=== PATIENT | female | born 1970 | race Caucasian/White ===

== ENCOUNTER 2017-07-30 18:37 | Inpatient (IN) | payer OTHER ==
[~2017-07-30] VITALS: Ht 165.1 cm; Wt 106.6 kg
[~2017-07-30 18:37] MED LIST: BENADRYL 25MG C25 MG PO; CATAPRES0.3 MG PO; CELEXA40 MG PO; FERROUS SULFAT325 MG PO; IBUPROFEN800 MG PO; LANTUS SQ; LEVAQUIN750 MG PO; LOPRESSOR100 MG PO; LYRICA100 MG PO; NORCO 5-325 TA1 EACH PO; REQUIP2 MG PO; ROBAXIN 750 MG750 MG PO
[2017-07-30 19:49] LABS: HEMOGLOBIN 11.3 gm/dl (12.3-15.3); RED BLOOD COUNT 5.43 M/UL (4.00-5.10)
[2017-07-30 19:55] LABS: BUN/CREATININE RATIO 16 (0-10)
[2017-07-31] MEDS ORDERED: LANTUS100 UNIT/1 SQ (04:04)
[2017-07-31] MEDS ORDERED: FARXIGA5 MG PO (04:07)
[2017-07-31 04:22] LABS: WHITE BLOOD COUNT 10.7 K/UL (4.5-11.0)
[2017-07-31] MEDS ORDERED: CATAPRES0.3 MG PO (04:23)
[2017-07-31 04:27] LABS: HEMOGLOBIN 9.2 gm/dl (12.3-15.3); RED BLOOD COUNT 4.37 M/UL (4.00-5.10)
[2017-07-31 04:28] LABS: BUN/CREATININE RATIO 15 (0-10)
[2017-07-31] MEDS ORDERED: BASAGLAR SQ (04:42)
[2017-08-01 04:16] LABS: HEMOGLOBIN 9.3 gm/dl (12.3-15.3); RED BLOOD COUNT 4.39 M/UL (4.00-5.10); WHITE BLOOD COUNT 8.3 K/UL (4.5-11.0)
[2017-08-01 04:19] LABS: BUN/CREATININE RATIO 10 (0-10)
[2017-08-01] MEDS ORDERED: NOVOLOG100 UNIT/1 SQ (16:35)
[2017-08-01] MEDS ORDERED: TYLENOL 325MG325 MG PO (16:36)
[2017-08-01] MEDS ORDERED: CEFTIN250 MG/5 M PO (16:42)
== END 2017-08-01 17:44 | disposition home or self-care (01) | DRG 699 ==
LOC: ER1 18:37 → ZEROF 22:57 → MED SURG 4 22:57
PROVIDERS: Physician Assistant; Physician Assistant Medical; ADMIT Internal Medicine
DX: E11.29 Type 2 diabetes mellitus with other diabetic kidney complication (principal); N12 Tubulo-interstitial nephritis, not specified as acute or chronic; D72.829 Elevated white blood cell count, unspecified; E11.65 Type 2 diabetes mellitus with hyperglycemia; B37.3 Candidiasis of vulva and vagina; M54.5 Low back pain; G89.29 Other chronic pain; M79.7 Fibromyalgia; I10 Essential (primary) hypertension; G25.81 Restless legs syndrome; Z86.19 Personal history of other infectious and parasitic diseases
CPT/HCPCS: 36415; 71010; 74000; 80048; 80053; 81001; 82962; 83605; 83690; 83735; 84100; 84132; 84703; 85025; 85027; 87040; 87086; J0696; J1650; J1817; J2270; J2405; J2543; J7030; J7050; Q0163; Q9962

== ENCOUNTER 2021-01-28 18:37 | Inpatient (IN) | payer OTHER ==
[~2021-01-28] VITALS: Ht 165.1 cm; Wt 101.6 kg
[~2021-01-28 18:37] MED LIST changes: +ADMELOG100 UNIT/1 SC; +BASAGLAR K100 UNIT/1 SC; +BASAGLAR SQ; +CEFTIN250 MG/5 M PO; +CELEBREX200 MG PO; +FARXIGA5 MG PO; +HUMULIN N100 UNIT/1 SQ; +HYDROCHLOROTHIA25 MG PO; +HYDROCODON-ACE1 EAC2 PO; +LANTUS100 UNIT/1 SQ; +LISINOPRIL5 MG PO; +MACROBID 100 M100 MG PO; +NEURONTIN600 MG PO; +NOVOLOG100 UNIT/1 SQ; +ROBAXIN-750750 MG PO; +TYLENOL 325MG325 MG PO; +VISTARIL 50 MG50 MG PO; +ZOFRAN4 MG PO
[2021-01-28 22:58] LABS: HEMOGLOBIN 10.7 gm/dl (12.3-15.3); RED BLOOD COUNT 5.04 M/UL (4.00-5.10); WHITE BLOOD COUNT 11.2 K/UL (4.5-11.0)
[2021-01-28 23:17] LABS: BUN/CREATININE RATIO 19 (0-10)
[2021-01-29] MEDS ORDERED: WELLBUTRIN XL300 MG PO (00:22)
[2021-01-29] MEDS ORDERED: CRESTOR20 MG PO (00:23)
[2021-01-29] MEDS ORDERED: HYDROCHLOROTHIA25 MG PO (00:23)
[2021-01-29] MEDS ORDERED: CLONIDINE HCL0.3 MG PO (00:24)
[2021-01-29] MEDS ORDERED: UNISOM SLEEP AI25 MG PO (00:27)
[2021-01-29 08:15] LABS: WHITE BLOOD COUNT 10.6 K/UL (4.5-11.0)
[2021-01-29 08:23] LABS: RED BLOOD COUNT 4.71 M/UL (4.00-5.10)
[2021-01-29 08:50] LABS: BUN/CREATININE RATIO 18 (0-10)
[2021-01-30 05:13] LABS: HEMOGLOBIN 9.1 gm/dl (12.3-15.3); RED BLOOD COUNT 4.39 M/UL (4.00-5.10); WHITE BLOOD COUNT 8.8 K/UL (4.5-11.0)
[2021-01-30 05:38] LABS: BUN/CREATININE RATIO 13 (0-10)
[2021-01-31 04:29] LABS: BUN/CREATININE RATIO 12 (0-10)
[2021-02-01 03:17] LABS: HEMOGLOBIN 9.4 gm/dl (12.3-15.3); RED BLOOD COUNT 4.47 M/UL (4.00-5.10)
[2021-02-01 03:28] LABS: BUN/CREATININE RATIO 9 (0-10)
[2021-02-01] MEDS ORDERED: LISINOPRIL10 MG PO (17:44)
[2021-02-01] MEDS ORDERED: JARDIANCE10 MG PO (17:44)
[2021-02-01] MEDS ORDERED: INVANZ 1 GM VIAL1 GM IV (17:44)
[2021-02-01] MEDS ORDERED: BASAGLAR K100 UNIT/1 SC (17:44)
[2021-02-01] MEDS ORDERED: VITAMIN D350 MC3 PO (18:01)
== END 2021-02-01 18:49 | disposition home or self-care (01) | DRG 264 ==
LOC: ER1 18:37 → CDU 23:54 → M/S 01-29 17:50
PROVIDERS: Internal Medicine Infectious Disease; Physician Assistant; Podiatrist Foot & Ankle Surgery; ADMIT Internal Medicine
PROC: 0JBQ0ZZ Excision of Right Foot Subcutaneous Tissue and Fascia, Open Approach (ICD-10-PCS; 2021-01-29)
PROC: 0QBN0ZZ Excision of Right Metatarsal, Open Approach (ICD-10-PCS; principal; 2021-01-29 19:26)
DX: E11.52 Type 2 diabetes mellitus with diabetic peripheral angiopathy with gangrene (principal); M86.171 Other acute osteomyelitis, right ankle and foot; E87.2 Acidosis; E11.69 Type 2 diabetes mellitus with other specified complication; E11.621 Type 2 diabetes mellitus with foot ulcer; I10 Essential (primary) hypertension; D50.9 Iron deficiency anemia, unspecified; E55.9 Vitamin D deficiency, unspecified; E11.40 Type 2 diabetes mellitus with diabetic neuropathy, unspecified; F41.8 Other specified anxiety disorders; Z20.822 Contact with and (suspected) exposure to COVID-19; M50.30 Other cervical disc degeneration, unspecified cervical region; F11.90 Opioid use, unspecified, uncomplicated; M79.7 Fibromyalgia; G25.81 Restless legs syndrome; G89.29 Other chronic pain; E66.9 Obesity, unspecified; Z90.49 Acquired absence of other specified parts of digestive tract; Z68.30 Body mass index [BMI] 30.0-30.9, adult; Z79.4 Long term (current) use of insulin
CPT/HCPCS: 36415; 73630; 73718; 80048; 80053; 80202; 82550; 82553; 82607; 82746; 82962; 83036; 83540; 83550; 83605; 83735; 83874; 84100; 84443; 84484; 85025; 85027; 85652; 86140; 87040; 87070; 87077; 87186; 87205; 93926; 96365; 96366; 96367; 96372; 96375; 96376; 99284; C1751; G0378; J1100; J1335; J1650; J1756; J2001; J2250; J2405; J2543; J2704; J2765; J2795; J3010; J3370; J7030; J7070; J7120; U0002

== ENCOUNTER 2021-02-14 17:07 | Emergency (ER) | payer OTHER ==
[~2021-02-14 17:07] MED LIST changes: +CLONIDINE HCL0.3 MG PO; +CRESTOR20 MG PO; +INVANZ 1 GM VIAL1 GM IV; +JARDIANCE10 MG PO; +LISINOPRIL10 MG PO; +UNISOM SLEEP AI25 MG PO; +VITAMIN D350 MC3 PO; +WELLBUTRIN XL300 MG PO
== END 2021-02-14 20:11 | disposition home or self-care (01) ==
LOC: ER1 17:07
DX: T82.594A Other mechanical complication of infusion catheter, initial encounter (principal); I10 Essential (primary) hypertension; E11.9 Type 2 diabetes mellitus without complications; Z88.8 Allergy status to other drugs, medicaments and biological substances; Y83.8 Other surgical procedures as the cause of abnormal reaction of the patient, or of later complication, without mention of misadventure at the time of the procedure
CPT/HCPCS: 71045; 73060; 99283

== ENCOUNTER → 2021-02-22 | Outpatient (CLI) | payer OTHER ==
[~2021-02-22] VITALS: Ht 165.1 cm; Wt 102.1 kg
[~2021-02-22] MED LIST changes: +CELEXA20 MG PO; +HUMALOG100 UNIT/3 SQ; +HYDROXYZINE HCL50 MG PO; +METOPROLOL TAR100 MG PO; +SEROQUEL200 MG PO; +VOLTAREN100 GM TP; +WELLBUTRIN SR200 MG PO; +ZESTRIL10 MG PO; +ZESTRIL30 MG PO; +ZOSYN 4.5 GM A4.5 GM IV
[2021-02-22 09:12] LABS: HEMOGLOBIN 11.2 gm/dl (12.3-15.3); RED BLOOD COUNT 5.13 M/UL (4.00-5.10)
[2021-02-22 09:32] LABS: BUN/CREATININE RATIO 16 (0-10)
== END ==
LOC: OPSV 02-18 08:00
PROVIDERS: Podiatrist Foot & Ankle Surgery
DX: M86.9 Osteomyelitis, unspecified (principal); B95.5 Unspecified streptococcus as the cause of diseases classified elsewhere
CPT/HCPCS: 80048; 85027; 85652; 86140; 96365; 96366; C1751; J3370; J7070

== ENCOUNTER 2021-03-11 21:49 | Inpatient (IN) | payer OTHER ==
[~2021-03-11] VITALS: Ht 165.1 cm; Wt 102.1 kg
[~2021-03-11 21:49] MED LIST changes: -CELEXA20 MG PO; -HUMALOG100 UNIT/3 SQ; -HYDROXYZINE HCL50 MG PO; -METOPROLOL TAR100 MG PO; -SEROQUEL200 MG PO; -VOLTAREN100 GM TP; -WELLBUTRIN SR200 MG PO; -ZESTRIL10 MG PO; -ZESTRIL30 MG PO; -ZOSYN 4.5 GM A4.5 GM IV
[2021-03-11 22:37] LABS: HEMOGLOBIN 11.7 gm/dl (12.3-15.3); RED BLOOD COUNT 5.41 M/UL (4.00-5.10); WHITE BLOOD COUNT 10.7 K/UL (4.5-11.0)
[2021-03-11 22:56] LABS: BUN/CREATININE RATIO 15 (0-10)
[2021-03-12] MEDS ORDERED: HUMALOG100 UNIT/3 SQ (00:19)
[2021-03-12] MEDS ORDERED: SEROQUEL200 MG PO (00:21)
[2021-03-12] MEDS ORDERED: CELEXA20 MG PO (07:42)
[2021-03-12] MEDS ORDERED: ZESTRIL10 MG PO (09:24)
[2021-03-12] MEDS ORDERED: WELLBUTRIN SR200 MG PO (09:26)
[2021-03-12] MEDS ORDERED: CELEBREX200 MG PO (09:29)
[2021-03-12] MEDS ORDERED: HYDROCHLOROTHIA25 MG PO (09:30)
[2021-03-12] MEDS ORDERED: VOLTAREN100 GM TP (09:32)
[2021-03-12] MEDS ORDERED: HYDROXYZINE HCL50 MG PO (09:33)
[2021-03-12] MEDS ORDERED: UNISOM SLEEP AI25 MG PO (09:36)
[2021-03-13 04:04] LABS: HEMOGLOBIN 10.6 gm/dl (12.3-15.3); RED BLOOD COUNT 4.9 M/UL (4.00-5.10); WHITE BLOOD COUNT 9.9 K/UL (4.5-11.0)
[2021-03-13 04:33] LABS: BUN/CREATININE RATIO 14 (0-10)
[2021-03-15 02:51] LABS: HEMOGLOBIN 9.5 gm/dl (12.3-15.3); RED BLOOD COUNT 4.52 M/UL (4.00-5.10); WHITE BLOOD COUNT 9.3 K/UL (4.5-11.0)
[2021-03-15 03:12] LABS: BUN/CREATININE RATIO 13 (0-10)
[2021-03-15] MEDS ORDERED: ZESTRIL30 MG PO (14:48)
[2021-03-15] MEDS ORDERED: ZOSYN 4.5 GM A4.5 GM IV (14:48)
--- NOTE | 2021-03-15 17:00 | NUR ---
INSTRUCTED ON FOLLOW UP APPOINTMENTS, TAKE ALL MEDS ORDERED. KEEP WOUND CLEAN AND DRY. SIGNS AND SYMPTOMS OF INFECTION, VERBALIZED UNDERSTANDING Kiersten HARMON,
== END 2021-03-15 18:00 | disposition home or self-care (01) | DRG 638 ==
LOC: ER1 21:49 → CDU 23:44 → MED SURG 4 23:44
PROVIDERS: Family Medicine; Internal Medicine Infectious Disease; ADMIT Family Medicine
PROC: 02HV33Z Insertion of Infusion Device into Superior Vena Cava, Percutaneous Approach (ICD-10-PCS; principal; 2021-03-15)
DX: E11.69 Type 2 diabetes mellitus with other specified complication (principal); M86.8X7 Other osteomyelitis, ankle and foot; L03.115 Cellulitis of right lower limb; L03.031 Cellulitis of right toe; E87.6 Hypokalemia; I10 Essential (primary) hypertension; R00.1 Bradycardia, unspecified; G25.81 Restless legs syndrome; G89.29 Other chronic pain; E11.621 Type 2 diabetes mellitus with foot ulcer; D53.9 Nutritional anemia, unspecified; M54.9 Dorsalgia, unspecified; M79.7 Fibromyalgia; E55.9 Vitamin D deficiency, unspecified; Z83.3 Family history of diabetes mellitus; Z82.49 Family history of ischemic heart disease and other diseases of the circulatory system; Z80.9 Family history of malignant neoplasm, unspecified; Z79.4 Long term (current) use of insulin; Z90.49 Acquired absence of other specified parts of digestive tract; Z98.49 Cataract extraction status, unspecified eye; Z88.6 Allergy status to analgesic agent
CPT/HCPCS: 36415; 73630; 80053; 82962; 83605; 85025; 86140; 87070; 87077; 87186; 87205; 96374; 96375; 96376; 99284; G0378; J2543; J3370; J7060; J7070; U0002

== ENCOUNTER 2021-03-25 20:45 | Inpatient (IN) | payer OTHER ==
[~2021-03-25] VITALS: Ht 165.1 cm; Wt 108.9 kg
[~2021-03-25 20:45] MED LIST changes: +CELEXA20 MG PO; +HUMALOG100 UNIT/3 SQ; +HYDROXYZINE HCL50 MG PO; +SEROQUEL200 MG PO; +VOLTAREN100 GM TP; +WELLBUTRIN SR200 MG PO; +ZESTRIL10 MG PO; +ZESTRIL30 MG PO; +ZOSYN 4.5 GM A4.5 GM IV
[2021-03-25 23:47] LABS: HEMOGLOBIN 11.3 gm/dl (12.3-15.3); RED BLOOD COUNT 5.09 M/UL (4.00-5.10); WHITE BLOOD COUNT 10.9 K/UL (4.5-11.0)
[2021-03-26 00:07] LABS: BUN/CREATININE RATIO 27 (0-10)
[2021-03-26] MEDS ORDERED: BASAGLAR K100 UNIT/1 SC (01:50)
[2021-03-26] MEDS ORDERED: METOPROLOL TAR100 MG PO (16:09)
[2021-03-27 05:01] LABS: HEMOGLOBIN 10.1 gm/dl (12.3-15.3); RED BLOOD COUNT 4.64 M/UL (4.00-5.10); WHITE BLOOD COUNT 9.1 K/UL (4.5-11.0)
[2021-03-27 05:20] LABS: BUN/CREATININE RATIO 22 (0-10)
[2021-03-28 04:59] LABS: HEMOGLOBIN 11.1 gm/dl (12.3-15.3); RED BLOOD COUNT 5.01 M/UL (4.00-5.10); WHITE BLOOD COUNT 10.5 K/UL (4.5-11.0)
[2021-03-28 05:23] LABS: BUN/CREATININE RATIO 23 (0-10)
--- NOTE | 2021-03-28 14:12 | NUR ---
9138- CALLED TO PATIENTS ROOM, PATIENT STATED SHE FELT HER BLOOD SUGAR HAD DROPPED. BLOOD GLUCOSE 47. PATIENT WANTED SNACK AND APPLE JUICE. AWAKE AND ALERT.
--- NOTE | 2021-03-28 14:13 | NUR ---
1406- BLOOD GLUCOSE 85.
[2021-03-29 04:30] LABS: HEMOGLOBIN 10.5 gm/dl (12.3-15.3); RED BLOOD COUNT 4.79 M/UL (4.00-5.10); WHITE BLOOD COUNT 9.1 K/UL (4.5-11.0)
[2021-03-29 04:47] LABS: BUN/CREATININE RATIO 19 (0-10)
[2021-03-30 04:29] LABS: HEMOGLOBIN 10.9 gm/dl (12.3-15.3); RED BLOOD COUNT 4.99 M/UL (4.00-5.10); WHITE BLOOD COUNT 9.7 K/UL (4.5-11.0)
== END 2021-03-30 10:33 | disposition home health service (06) | DRG 988 ==
LOC: ER1 20:45 → CDU 03-26 01:47 → M/S 03-26 01:47
PROVIDERS: Internal Medicine; Orthopaedic Surgery; Physician Assistant; ADMIT Internal Medicine
PROC: 0J9Q0ZZ Drainage of Right Foot Subcutaneous Tissue and Fascia, Open Approach (ICD-10-PCS; principal; 2021-03-29 09:15)
DX: E11.628 Type 2 diabetes mellitus with other skin complications (principal); L03.115 Cellulitis of right lower limb; L02.611 Cutaneous abscess of right foot; M86.8X7 Other osteomyelitis, ankle and foot; E11.621 Type 2 diabetes mellitus with foot ulcer; E11.69 Type 2 diabetes mellitus with other specified complication; M79.7 Fibromyalgia; G89.29 Other chronic pain; M54.9 Dorsalgia, unspecified; D53.9 Nutritional anemia, unspecified; I10 Essential (primary) hypertension; E55.9 Vitamin D deficiency, unspecified; F41.9 Anxiety disorder, unspecified; F32.9 Major depressive disorder, single episode, unspecified; Z79.4 Long term (current) use of insulin; Z88.6 Allergy status to analgesic agent
CPT/HCPCS: 36415; 73700; 73720; 80048; 80053; 80202; 82962; 83605; 85025; 85027; 85652; 86140; 87040; 93005; 96365; 96366; 99285; A9577; J0360; J1650; J2250; J2405; J2543; J2704; J3010; J3370; J7030; J7050; J7070; J7120; Q0177; U0002

== ENCOUNTER 2021-04-09 16:22 | Emergency (ER) | payer OTHER ==
[~2021-04-09 16:22] MED LIST changes: +METOPROLOL TAR100 MG PO
== END 2021-04-09 18:52 | disposition home or self-care (01) ==
LOC: ER1 16:22
DX: T82.898A Other specified complication of vascular prosthetic devices, implants and grafts, initial encounter (principal); Z79.899 Other long term (current) drug therapy; Z88.8 Allergy status to other drugs, medicaments and biological substances
CPT/HCPCS: 71045; 99283

== ENCOUNTER → 2021-05-04 | Outpatient (CLI) | payer OTHER ==
[2021-05-04 14:15] LABS: HEMOGLOBIN 11.4 gm/dl (12.3-15.3); RED BLOOD COUNT 4.91 M/UL (4.00-5.10); WHITE BLOOD COUNT 7.6 K/UL (4.5-11.0)
== END ==
LOC: VNA 13:35
PROVIDERS: Podiatrist Foot & Ankle Surgery
DX: L02.611 Cutaneous abscess of right foot (principal)
CPT/HCPCS: 85025; 85652; 86140

== ENCOUNTER → 2021-06-14 | Outpatient (CLI) | payer OTHER ==
[~2021-06-14] MED LIST changes: +DICLOFENAC GEL 1% TOP; +EFFEXOR XR75 MG PO; +HEPARIN FLUSH IV; +LISINOPRIL40 MG PO; +LOPRESSOR50 MG PO; +SULFAMETHOXAZO1 EACH PO; +TRULICITY1.5 MG/0.5 SC; +ZOSYN IV
[2021-06-14 13:31] LABS: HEMOGLOBIN 12.4 gm/dl (12.3-15.3); RED BLOOD COUNT 5.15 M/UL (4.00-5.10); WHITE BLOOD COUNT 8.2 K/UL (4.5-11.0)
[2021-06-15 07:10] LABS: HBSAG SCREEN Negative (Negative); HCV AB <0.1 (0.0-0.9)
[2021-06-15 07:11] LABS: HEP B CORE AB, TOT Negative (Negative)
[2021-06-17 20:09] LABS: QUANTIFERON MITOGEN VALUE >10.00 IU/mL (.); QUANTIFERON NIL VALUE 0.03 IU/mL (.); QUANTIFERON TB1 AG VALUE 0.02 IU/mL (.); QUANTIFERON TB2 AG VALUE 0.03 IU/mL (.); QUANTIFERON-TB GOLD PLUS Negative (Negative)
== END ==
LOC: LAB 12:09
PROVIDERS: Internal Medicine
DX: L40.50 Arthropathic psoriasis, unspecified (principal); Z51.81 Encounter for therapeutic drug level monitoring; Z79.899 Other long term (current) drug therapy
CPT/HCPCS: 36415; 73130; 73630; 80053; 85025; 85652; 86140; 86704; 86803; 87340

== ENCOUNTER → 2021-08-04 | Outpatient (CLI) | payer OTHER | LOC: EMI 09:15 | DX: M86.9 Osteomyelitis, unspecified (principal) | CPT/HCPCS: 73718 ==

== ENCOUNTER → 2021-08-05 | Outpatient (CLI) | payer OTHER ==
[2021-08-05 11:32] LABS: HEMOGLOBIN 11.4 gm/dl (12.3-15.3); RED BLOOD COUNT 4.71 M/UL (4.00-5.10); WHITE BLOOD COUNT 7.7 K/UL (4.5-11.0)
[2021-08-05 12:01] LABS: BUN/CREATININE RATIO 23 (0-10)
== END ==
LOC: OPSV2 09:52
PROVIDERS: Podiatrist Foot & Ankle Surgery
DX: Z01.818 Encounter for other preprocedural examination (principal); E11.621 Type 2 diabetes mellitus with foot ulcer; L97.519 Non-pressure chronic ulcer of other part of right foot with unspecified severity
CPT/HCPCS: 80048; 83036; 85027; 93005

== ENCOUNTER → 2021-08-11 | Day surgery (SDC) | payer OTHER | END | disposition home or self-care (01) | LOC: OR 05:38 | DX: E11.69 Type 2 diabetes mellitus with other specified complication (principal); M86.9 Osteomyelitis, unspecified; E11.621 Type 2 diabetes mellitus with foot ulcer; L02.611 Cutaneous abscess of right foot; L03.115 Cellulitis of right lower limb; E11.65 Type 2 diabetes mellitus with hyperglycemia; E11.40 Type 2 diabetes mellitus with diabetic neuropathy, unspecified; I10 Essential (primary) hypertension; E78.2 Mixed hyperlipidemia; F34.1 Dysthymic disorder; F17.290 Nicotine dependence, other tobacco product, uncomplicated; Z79.4 Long term (current) use of insulin; Z79.82 Long term (current) use of aspirin; Z79.899 Other long term (current) drug therapy; Z88.8 Allergy status to other drugs, medicaments and biological substances; Z91.14 Patient's other noncompliance with medication regimen; Z20.822 Contact with and (suspected) exposure to COVID-19 | CPT/HCPCS: 73630; 84703; 87070; 87077; 87186; J0690; J1100; J1642; J2001; J2250; J2405; J2543; J2704; J2795; J3370; J7030; J7050; J7120; Q4133; U0002 ==

== ENCOUNTER → 2021-08-19 | Outpatient (CLI) | payer OTHER ==
[~2021-08-19] VITALS: Ht 165.1 cm; Wt 103.4 kg
== END ==
LOC: OPSV 12:00
DX: E11.621 Type 2 diabetes mellitus with foot ulcer (principal); L97.509 Non-pressure chronic ulcer of other part of unspecified foot with unspecified severity; E11.69 Type 2 diabetes mellitus with other specified complication; M86.9 Osteomyelitis, unspecified
CPT/HCPCS: 96365; J2185

== ENCOUNTER 2021-08-27 16:50 | Emergency (ER) | payer OTHER | END 2021-08-27 21:20 | disposition home or self-care (01) | LOC: ER1 16:50 | DX: Z45.2 Encounter for adjustment and management of vascular access device (principal) | CPT/HCPCS: 99283 ==

== ENCOUNTER → 2021-08-28 | Outpatient (CLI) | payer OTHER | LOC: EROP 13:57 → OPSV 13:57 | DX: Z47.81 Encounter for orthopedic aftercare following surgical amputation (principal) | CPT/HCPCS: 96365; J2185 ==

== ENCOUNTER → 2021-08-28 | Outpatient (CLI) | payer OTHER | LOC: EROP 20:03 | DX: Z89.9 Acquired absence of limb, unspecified (principal); Z09 Encounter for follow-up examination after completed treatment for conditions other than malignant neoplasm | CPT/HCPCS: J2185 ==

== ENCOUNTER → 2021-08-28 | Outpatient (CLI) | payer OTHER | LOC: EROP 06:59 | DX: Z47.81 Encounter for orthopedic aftercare following surgical amputation (principal) | CPT/HCPCS: 96365; J2185 ==

== ENCOUNTER → 2021-08-29 | Outpatient (CLI) | payer OTHER | LOC: OPSV 15:22 | DX: Z89.9 Acquired absence of limb, unspecified (principal); Z09 Encounter for follow-up examination after completed treatment for conditions other than malignant neoplasm | CPT/HCPCS: 96365; J2185 ==

== ENCOUNTER → 2021-08-29 | Outpatient (CLI) | payer OTHER | LOC: EDSTATUS 08:34 → EROP 20:52 → ER1 20:52 | DX: Z89.9 Acquired absence of limb, unspecified (principal); Z09 Encounter for follow-up examination after completed treatment for conditions other than malignant neoplasm | CPT/HCPCS: 96365 ==

== ENCOUNTER → 2021-08-29 | Outpatient (CLI) | payer OTHER ==
[~2021-08-29] VITALS: Ht 165.1 cm; Wt 103.4 kg
== END ==
LOC: OPSV 07:00
DX: Z47.81 Encounter for orthopedic aftercare following surgical amputation (principal)
CPT/HCPCS: 96365; J2185

== ENCOUNTER → 2021-08-30 | Outpatient (CLI) | payer OTHER ==
[~2021-08-30] VITALS: Ht 165.1 cm; Wt 103.4 kg
--- NOTE | 2021-08-30 17:11 | NUR ---
Single lumen PICC line inserted in the right brachial vein, cut to 35cm. Ultrasound used to obtain venous access. 3CG technology used to confirm PICC tip in SVC. Aspirates and flushes. Sterile dressing applied. Upper arm circ = 31.5cm, lower arm circ = 28.5 cm. Unable to advance guidewire on first attempt. Venous access obtained on second attempt.
== END ==
LOC: OPSV 15:00
DX: M86.9 Osteomyelitis, unspecified (principal)
CPT/HCPCS: 96365; C1751; J2185

== ENCOUNTER → 2021-08-30 | Outpatient (CLI) | payer OTHER ==
[~2021-08-30] VITALS: Ht 165.1 cm; Wt 103.4 kg
== END ==
LOC: OPSV 07:00
DX: Z47.81 Encounter for orthopedic aftercare following surgical amputation (principal)
CPT/HCPCS: 96365; J2185

== ENCOUNTER 2021-12-06 19:19 | Emergency (ER) | payer OTHER | END 2021-12-06 21:25 | disposition left against medical advice (07) | LOC: ER1 19:19 | DX: Z53.21 Procedure and treatment not carried out due to patient leaving prior to being seen by health care provider (principal) ==

== ENCOUNTER → 2021-12-30 | Outpatient (CLI) | payer OTHER | LOC: KOH-I 10:48 | DX: M79.671 Pain in right foot (principal) | CPT/HCPCS: 73630 ==

== ENCOUNTER 2022-06-06 19:14 | Emergency (ER) | payer OTHER ==
[~2022-06-06 19:14] MED LIST changes: +BACTRIM DS TAB1 EACH PO; +ECOTRIN325 MG PO; +NORVASC5 MG PO; +PAMELOR25 MG PO; -TRULICITY1.5 MG/0.5 SC; +TRULICITY3 MG/0.5 M SQ
[2022-06-06 20:41] LABS: HEMOGLOBIN 11.6 gm/dl (12.3-15.3); RED BLOOD COUNT 5.1 M/UL (4.00-5.10); WHITE BLOOD COUNT 10.8 K/UL (4.5-11.0)
[2022-06-06 21:03] LABS: BUN/CREATININE RATIO 18 (0-10)
[2022-06-06] MEDS ORDERED: CEFUROXIME500 MG PO (22:14)
[2022-06-06] MEDS ORDERED: DIFLUCAN150 MG PO (22:14)
[2022-06-06] MEDS ORDERED: ONDANSETRON ODT4 MG SL (22:14)
[2022-06-06] MEDS ORDERED: PYRIDIUM200 MG PO (22:14)
== END 2022-06-06 22:30 | disposition home or self-care (01) ==
LOC: ER1 19:14
PROVIDERS: Physician Assistant
DX: N12 Tubulo-interstitial nephritis, not specified as acute or chronic (principal); B37.3 Candidiasis of vulva and vagina; E11.65 Type 2 diabetes mellitus with hyperglycemia; I10 Essential (primary) hypertension; E78.5 Hyperlipidemia, unspecified; Z88.8 Allergy status to other drugs, medicaments and biological substances
CPT/HCPCS: 80053; 81001; 83605; 84703; 85025; 87040; 87077; 87086; 87186; 99284

== ENCOUNTER 2022-06-15 18:37 | Emergency (ER) | payer OTHER ==
[~2022-06-15 18:37] MED LIST changes: +CEFUROXIME500 MG PO; +DIFLUCAN150 MG PO; +ONDANSETRON ODT4 MG SL; +PYRIDIUM200 MG PO
[2022-06-15 20:24] LABS: HEMOGLOBIN 10.1 gm/dl (12.3-15.3); RED BLOOD COUNT 4.49 M/UL (4.00-5.10); WHITE BLOOD COUNT 17.9 K/UL (4.5-11.0)
[2022-06-15] MEDS ORDERED: OMNICEF 300 MG300 MG PO (23:11)
== END 2022-06-15 23:25 | disposition home or self-care (01) ==
LOC: ER1 18:37
PROVIDERS: Physician Assistant
DX: N39.0 Urinary tract infection, site not specified (principal); I95.9 Hypotension, unspecified; E11.9 Type 2 diabetes mellitus without complications; I10 Essential (primary) hypertension; Z88.8 Allergy status to other drugs, medicaments and biological substances
CPT/HCPCS: 80053; 81001; 82962; 83605; 85025; 87040; 87086; 96361; 96374; 96375; 99285; J0696

== ENCOUNTER 2022-07-02 17:23 | Emergency (ER) | payer OTHER ==
[~2022-07-02 17:23] MED LIST changes: +OMNICEF 300 MG300 MG PO
[2022-07-02] MEDS ORDERED: VIBRAMYCIN 100100 MG PO (21:08)
== END 2022-07-02 21:11 | disposition home or self-care (01) ==
LOC: ER1 17:23
DX: L03.011 Cellulitis of right finger (principal); I10 Essential (primary) hypertension; E11.9 Type 2 diabetes mellitus without complications; Z88.8 Allergy status to other drugs, medicaments and biological substances; Z23 Encounter for immunization
CPT/HCPCS: 73130; 90471; 90715; 99283